=== PATIENT | female | born 1990 ===

== ENCOUNTER → 2019-03-29 | Outpatient (CLI) | payer OTHER ==
[2019-03-29 14:13] LABS: ALBUMIN 3.7 GM/DL (3.2-5.2); ALT/SGPT 47 U/L (12-78); BILIRUBIN,TOTAL 0.2 MG/DL (0.2-1.0); BLOOD UREA NITROGEN 8 MG/DL (7-18); CALCIUM LEVEL 8.8 MG/DL (8.5-10.1); CARBON DIOXIDE LEVEL 28 MEQ/L (21-32); CHLORIDE LEVEL 106 MEQ/L (98-107); CREATININE FOR GFR 0.55 MG/DL (0.55-1.30); FREE T4 1.06 NG/DL (0.76-1.46); GLOMERULAR FILTRATION RATE > 60.0 (>60); GLUCOSE, FASTING 125 MG/DL (70-100); LUTEINIZING HORMONE 7.3 mIU/mL; POTASSIUM SERUM 3.9 MEQ/L (3.5-5.1); PROGESTERONE 0.21 NG/ML; SODIUM LEVEL 139 MEQ/L (136-145); TOTAL PROTEIN 7.6 GM/DL (6.4-8.2)
[2019-03-29 14:40] LABS: HEMOGLOBIN A1c 6.4 %
== END ==
LOC: M WUC 09:44
PROVIDERS: ATTEND Family Medicine
DX: N92.6 Irregular menstruation, unspecified (principal); L70.9 Acne, unspecified